=== PATIENT | female | born 1965 | race Caucasian/White ===

== ENCOUNTER 2023-11-02 12:19 | Emergency (ER) | payer OTHER ==
[~2023-11-02] VITALS: Ht 175.3 cm; Wt 91.6 kg
[~2023-11-02 12:19] MED LIST: AMIT25 PO; Adipex-P37.5 M1 PO; Ativan1 MG PO; CELE400; CEPH500 PO; CYCL10; FLUT1DIS2 INH; GABA100 PO; HYDACE5; HYDACE7.5 PO; Loratadine10 MG PO; NAPR500EC; ONDA4ODT SL; PRED20; PROACE100; PROACE100 PO; SUMA5NI; Tamiflu75 MG PO; Ventolin/Prove6.7 GM; [UNRECOGNIZED DRUG - OTHER]
[2023-11-02 12:53] VITALS: BP 172/106
[2023-11-02] MEDS ORDERED: CEPH500 PO (13:19)
[2023-11-02] MEDS ORDERED: HYDR1TAB94 PO (15:13)
== END 2023-11-02 13:43 | disposition home or self-care (01) ==
LOC: ER 12:19
DX: S62.631B Displaced fracture of distal phalanx of left index finger, initial encounter for open fracture (principal); W31.2XXA Contact with powered woodworking and forming machines, initial encounter; J45.909 Unspecified asthma, uncomplicated; Z23 Encounter for immunization; Z88.5 Allergy status to narcotic agent; Z88.8 Allergy status to other drugs, medicaments and biological substances; Z79.899 Other long term (current) drug therapy
CPT/HCPCS: 73140; 90471; 90714; 90715; 99283-25; A9270

== ENCOUNTER 2025-07-19 07:14 | Observation (INO) | payer SELFPAY ==
[~2025-07-19] VITALS: Ht 175.3 cm; Wt 91.0 kg
[2025-07-19] VITALS (16 sets, daily range): BP systolic 100–143; BP diastolic 56–92
[~2025-07-19 07:14] MED LIST changes: +HYDR1TAB94 PO
[2025-07-19] MEDS ORDERED: Ketorolac Tromethamine 30mg Vial IV ONE (07:30)
[2025-07-19] MEDS ORDERED: FentaNYL Citrate 50 MCG/ML 2 ML Injection IV ONE (07:30)
[2025-07-19] MEDS ORDERED: Ondansetron HCl 2 MG / ML 2ML Vial IV ONE ×3 (07:40→13:25)
[2025-07-19] MEDS ORDERED: HYDROmorphone HCl/Pf 1MG SYR IV ONE ×2 (09:00→09:30)
[2025-07-19] MEDS ORDERED: HYDROmorphone HCl/Pf 1MG SYR IV PRN (10:25)
--- NOTE | 2025-07-19 13:04 | NUR ---
PT TO ROOM [address] FROM ED[address] PT NPO. DR HOFFMAN IN WITH PT TO OBTAIN CONSENT/ETC... PT TO OR IN THE NEXT FIFTEEN MINUTES PER CHARGE.
[2025-07-19] MEDS ORDERED: CeFAZolin Sodium 2,000 MG in NS 100 ML IV SCH (13:35)
[2025-07-19] MEDS ORDERED: FentaNYL Citrate 50 MCG/ML 2 ML Injection ONE (14:05)
[2025-07-19] MEDS ORDERED: Midazolam HCl 1MG / ML 2ML Vial ONE (14:05)
[2025-07-19] MEDS ORDERED: Bupivacaine 0.5% HCl 5 MG/ML 30MLVIAL ONE (14:09)
[2025-07-19 14:14] LABS: BASOPHILS ABSOLUTE AUTO 0.03 K/mm3 (0.00-0.23); BASOPHILS PERCENT AUTO 1 % (0-2); EOSINOPHILS ABSOLUTE AUTO 0.00 K/mm3 (0.00-0.68); EOSINOPHILS PERCENT AUTO 0 % (0-6); Hematocrit 35.5 % (33.0-51.0); Hemoglobin 12.1 g/dL (11.5-16.0); IMMATURE GRAN ABSOLUTE AUTO 0.02 K/mm3 (0.00-0.10); IMMATURE GRAN PERCENT AUTO 0 % (0-1); LYMPHOCYTES ABSOLUTE AUTO 1.20 K/mm3 (0.84-5.20); LYMPHOCYTES PERCENT AUTO 18 % (21-46); MONOCYTES ABSOLUTE AUTO 0.39 K/mm3 (0.16-1.47); MONOCYTES PERCENT AUTO 6 % (4-13); Mean Corpuscular HGB Conc 34.1 g/dL (31.5-36.5); Mean Corpuscular Volume 88 fL (80-100); NEUTROPHILS ABSOLUTE AUTO 4.91 K/mm3 (1.96-9.15); NEUTROPHILS PERCENT AUTO 75 % (41-73); NRBC ABSOLUTE 0.00 K/mm3 (0.00-0.02); NRBC Auto 0.0 /100 WBC (0.0-0.2); Platelet Count 191 K/mm3 (150-400); RDW Coefficient Variation 12.5 % (11.7-14.2); RDW Standard Deviation 40.9 fL (35.1-46.3)
--- NOTE | 2025-07-19 14:26 | NUR ---
TO [facility]. History, Chart, Medications and Allergies reviewed before start of procedure. Lungs clear T/O to Auscultation. Patient confirms NPO status and agrees with scheduled surgery. Pre-Op teaching done. Pt verbalizes understanding. 1414: TIME OUT COMPLETED AT BEDSIDE FOR NERVE BLOCK. PT PLACED ON HARDBOARD PRESS OPERATOR, SPO2, O2. 1418: BLOCK STARTED. PT DESATS DURING PROCEDURE. PLACED ON NRB. NASAL TRUMPET PLACED PER ANES WITH GOOD EFFECT. PT MAINTAINING O2. 1421: BLOCK COMPLETED. 1428: 2ND BLOCK STARTED. PT MARIBEL WELL WITH 10L O2 WITH NRB. AWAKES WITH VERBAL STIMULATION. 1429: BLOCK COMPLETED. MASK REMOVED. PLACED ON NC. WILL REMOVE NASAL TRUMPET ONCE FULLY AWAKE.
[2025-07-19 14:32] LABS: Anion Gap 7.0 mmol/L (3-11); Blood Urea Nitrogen 16.0 mg/dL (8-24); CO2, Blood 25.0 mmol/L (21-32); Calcium, Blood 8.5 mg/dL (8.5-10.1); Chloride, Blood 113.0 mmol/L (98-108); Creatinine, Blood 0.78 mg/dL (0.40-1.00); Glucose, Blood 92.0 mg/dL (70-99); Potassium, Blood 4.3 mmol/L (3.5-5.5); Sodium, Blood 141.0 mmol/L (136-145)
[2025-07-19] MEDS ORDERED: Ondansetron HCl 2 MG / ML 2ML Vial ONE (15:21)
[2025-07-19] MEDS ORDERED: Metoclopramide HCl 5MG / ML 2ML Vial ONE (15:21)
--- NOTE | 2025-07-19 15:34 | NUR ---
07/19/25 1534 Makenzie Dye NOTED: STITCHES TO PT RIGHT 3RD TOE, SURGEON AWARE
[2025-07-19] MEDS ORDERED: Sugammadex Sodium 200 MG/2ML SDV (100 MG/ML) ONE (16:33)
--- NOTE | 2025-07-19 17:31 | NUR ---
PT TO ROOM 218 AFTER PACU. POST OP VS STARTED AND STABLE. ORTHOGLASS SPLINT IN PLACE LEFT LEG. LEG IS STILL BLOCKED. CAP REFILL WNL. GAUZE POST OP SHOE TO RIGHT AFTER SECOND TOE REDUCTION. WILL CONTINUE TO MONITOR.
[2025-07-20 00:19] VITALS: BP 105/54
[2025-07-20 03:10] VITALS: BP 105/54
[2025-07-20] MEDS ORDERED: Ondansetron HCl 2 MG / ML 2ML Vial IV PRN (04:15)
[2025-07-20] MEDS ORDERED: FentaNYL Citrate 50 MCG/ML 2 ML Injection IV PRN (04:15)
[2025-07-20 05:18] LABS: BASOPHILS ABSOLUTE AUTO 0.03 K/mm3 (0.00-0.23); BASOPHILS PERCENT AUTO 0 % (0-2); EOSINOPHILS ABSOLUTE AUTO 0.00 K/mm3 (0.00-0.68); EOSINOPHILS PERCENT AUTO 0 % (0-6); Hematocrit 33.3 % (33.0-51.0); Hemoglobin 11.2 g/dL (11.5-16.0); IMMATURE GRAN ABSOLUTE AUTO 0.02 K/mm3 (0.00-0.10); IMMATURE GRAN PERCENT AUTO 0 % (0-1); LYMPHOCYTES ABSOLUTE AUTO 1.38 K/mm3 (0.84-5.20); LYMPHOCYTES PERCENT AUTO 18 % (21-46); MONOCYTES ABSOLUTE AUTO 0.64 K/mm3 (0.16-1.47); MONOCYTES PERCENT AUTO 8 % (4-13); Mean Corpuscular HGB Conc 33.6 g/dL (31.5-36.5); Mean Corpuscular Volume 89 fL (80-100); NEUTROPHILS ABSOLUTE AUTO 5.83 K/mm3 (1.96-9.15); NEUTROPHILS PERCENT AUTO 74 % (41-73); NRBC ABSOLUTE 0.00 K/mm3 (0.00-0.02); NRBC Auto 0.0 /100 WBC (0.0-0.2); Platelet Count 178 K/mm3 (150-400); RDW Coefficient Variation 12.5 % (11.7-14.2); RDW Standard Deviation 40.8 fL (35.1-46.3)
--- NOTE | 2025-07-20 05:28 | NUR ---
SHIFT SUMMARY FESTUS WAS SLEEPY BUT ROUSABLE ON ASSESSMENT AND FULLY ORIENTED. LOCAL BLOCK STILL IN EFFECT AT START OF SHIFT, BUT WORE OFF IN EARLY AM. PT PAIN BECOMING INCREASINGLY DIFFICULT TO MANAGE, REACHING OUT TO HOSPITALIST FOR PAIN MANAGEMENT OPTIONS. SENSATION AND ABILLITY TO WIGGLE TOES HAS RETURNED, CAP REFIL <3 SEC. PT DENIES NAUSEA, SOB, AND CHEST PAIN. PT ON BEDREST PENDING WB STATUS UPDATE. PURWIC IN PLACE WITH GOOD OUTPUT. NO ACUTE EVENTS TONIGHT. NO NOTED DRAINAGE TO EXTERNAL CAST.
[2025-07-20 05:47] LABS: Anion Gap 7.0 mmol/L (3-11); Blood Urea Nitrogen 13.0 mg/dL (8-24); CO2, Blood 24.0 mmol/L (21-32); Calcium, Blood 8.1 mg/dL (8.5-10.1); Chloride, Blood 112.0 mmol/L (98-108); Creatinine, Blood 0.85 mg/dL (0.40-1.00); Glucose, Blood 95.0 mg/dL (70-99); Potassium, Blood 4.3 mmol/L (3.5-5.5); Sodium, Blood 139.0 mmol/L (136-145)
[2025-07-20 07:00] VITALS: BP 123/71
[2025-07-20] MEDS ORDERED: OXAYDO5 M1 PO (07:10)
--- NOTE | 2025-07-20 10:23 | NUR ---
PT REPORTS THAT HER FAMILY IS OUT OF TOWN, AND SHE HAS THREE FLIGHTS OF STAIRS TO CLIMB AT HOME.
[2025-07-20 13:56] VITALS: BP 126/74
--- NOTE | 2025-07-20 17:43 | NUR ---
SHIFT SUMMARY. POOR PAIN CONTROL TODAY. OXYCODONE INCREASED TO TWO TABS BY . SO FAR, PT HAS NOT NEEDED BREAKTHROUGH MEDICATION . ABLE TO WORK PARTIALLY WITH PT/OT TODAY. WILL CONTINUE TO MONITOR.
[2025-07-20 19:41] VITALS: BP 145/68
--- NOTE | 2025-07-21 04:04 | NUR ---
SHIFT SUMMARY FESTUS WAS ALERT AND FULLY ORIENTED ON ASSESSMENT. PAIN WAS OUT OF PROPORTION AT START OF SHIFT, BUT HAS GRADUALLY BECOME MORE MANAGEABLE T/O SHIFT. CIRCULAION/ SENSATION TO BLE'S INTACT, PT ABLE TO WIGGLE TOES. NO DRAINAGE NOTED. CONT BIOX PROVIDED D/T OPOIDS. DENIES SOB, NAUSEA, OR CHEST PAIN. NO ACUTE EVENTS OR OTHER NOTED CHANGES TO PT.
[2025-07-21 05:13] LABS: BASOPHILS ABSOLUTE AUTO 0.02 K/mm3 (0.00-0.23); BASOPHILS PERCENT AUTO 0 % (0-2); EOSINOPHILS ABSOLUTE AUTO 0.00 K/mm3 (0.00-0.68); EOSINOPHILS PERCENT AUTO 0 % (0-6); Hematocrit 35.8 % (33.0-51.0); Hemoglobin 12.1 g/dL (11.5-16.0); IMMATURE GRAN ABSOLUTE AUTO 0.03 K/mm3 (0.00-0.10); IMMATURE GRAN PERCENT AUTO 0 % (0-1); LYMPHOCYTES ABSOLUTE AUTO 1.31 K/mm3 (0.84-5.20); LYMPHOCYTES PERCENT AUTO 16 % (21-46); MONOCYTES ABSOLUTE AUTO 0.86 K/mm3 (0.16-1.47); MONOCYTES PERCENT AUTO 10 % (4-13); Mean Corpuscular HGB Conc 33.8 g/dL (31.5-36.5); Mean Corpuscular Volume 89 fL (80-100); NEUTROPHILS ABSOLUTE AUTO 6.11 K/mm3 (1.96-9.15); NEUTROPHILS PERCENT AUTO 73 % (41-73); NRBC ABSOLUTE 0.00 K/mm3 (0.00-0.02); NRBC Auto 0.0 /100 WBC (0.0-0.2); Platelet Count 182 K/mm3 (150-400); RDW Coefficient Variation 12.3 % (11.7-14.2); RDW Standard Deviation 40.0 fL (35.1-46.3)
[2025-07-21 05:18] VITALS: BP 137/71
[2025-07-21 05:50] LABS: Anion Gap 6.0 mmol/L (3-11); Blood Urea Nitrogen 13.0 mg/dL (8-24); CO2, Blood 27.0 mmol/L (21-32); Calcium, Blood 8.3 mg/dL (8.5-10.1); Chloride, Blood 107.0 mmol/L (98-108); Creatinine, Blood 0.84 mg/dL (0.40-1.00); Glucose, Blood 108.0 mg/dL (70-99); Potassium, Blood 4.1 mmol/L (3.5-5.5); Sodium, Blood 136.0 mmol/L (136-145)
[2025-07-21 07:07] VITALS: BP 140/77
--- NOTE | 2025-07-21 09:00 | NUR ---
pt laying in bed, states she has pain, rates 5/10, medicated per emar, a/ox4, pleasant and cooperative with care, follow commands well, lungs are clear t/o, resp even and unlabored, no cough noted, on r/a, hrr, piv to rac, site is clear and patent, btx4, last bm day before yesterday, voids via purwick at this time, skin has bulky dressing to left le, and foot, maew, nonweight berring at this time, curly, call light in reach.
[2025-07-21 14:55] VITALS: BP 118/74
--- NOTE | 2025-07-21 18:19 | NUR ---
pt doing ok, no acute changes this shift, worked with therapy today, pain being managed by roxicodone, call light in reach.
[2025-07-21 19:23] VITALS: BP 108/63
[2025-07-21] MEDS ORDERED: Polyethylene Glycol 3350 17 gm PO SCH (21:00)
[2025-07-22] MEDS ORDERED: Heparin Sodium,Porcine 5,000 UNIT/0.5 ML SDV SC SCH
[2025-07-22 03:40] VITALS: BP 119/66
--- NOTE | 2025-07-22 05:15 | NUR ---
NOC SUMMARY- PT PAIN MANAGED WELL. PT HAS BEEN RESTING IN NO DISTRESS. PT VOIDING VIA PUREWICK DEVICE. PT TOLERATING PO. PT GIVEN BOWEL CARE MEDS ORDERED. CALL LIGHT IN REACH.
[2025-07-22 05:51] LABS: BASOPHILS ABSOLUTE AUTO 0.03 K/mm3 (0.00-0.23); BASOPHILS PERCENT AUTO 1 % (0-2); EOSINOPHILS ABSOLUTE AUTO 0.00 K/mm3 (0.00-0.68); EOSINOPHILS PERCENT AUTO 0 % (0-6); Hematocrit 32.8 % (33.0-51.0); Hemoglobin 11.4 g/dL (11.5-16.0); IMMATURE GRAN ABSOLUTE AUTO 0.01 K/mm3 (0.00-0.10); IMMATURE GRAN PERCENT AUTO 0 % (0-1); LYMPHOCYTES ABSOLUTE AUTO 1.53 K/mm3 (0.84-5.20); LYMPHOCYTES PERCENT AUTO 24 % (21-46); MONOCYTES ABSOLUTE AUTO 0.57 K/mm3 (0.16-1.47); MONOCYTES PERCENT AUTO 9 % (4-13); Mean Corpuscular HGB Conc 34.8 g/dL (31.5-36.5); Mean Corpuscular Volume 87 fL (80-100); NEUTROPHILS ABSOLUTE AUTO 4.36 K/mm3 (1.96-9.15); NEUTROPHILS PERCENT AUTO 67 % (41-73); NRBC ABSOLUTE 0.00 K/mm3 (0.00-0.02); NRBC Auto 0.0 /100 WBC (0.0-0.2); Platelet Count 197 K/mm3 (150-400); RDW Coefficient Variation 12.2 % (11.7-14.2); RDW Standard Deviation 39.0 fL (35.1-46.3)
[2025-07-22 06:17] LABS: Anion Gap 8.0 mmol/L (3-11); Blood Urea Nitrogen 12.0 mg/dL (8-24); CO2, Blood 26.0 mmol/L (21-32); Calcium, Blood 8.6 mg/dL (8.5-10.1); Chloride, Blood 108.0 mmol/L (98-108); Creatinine, Blood 0.8 mg/dL (0.40-1.00); Glucose, Blood 96.0 mg/dL (70-99); Potassium, Blood 4.0 mmol/L (3.5-5.5); Sodium, Blood 138.0 mmol/L (136-145)
[2025-07-22 07:19] VITALS: BP 117/69
[2025-07-22 14:52] VITALS: BP 125/68
--- NOTE | 2025-07-22 18:32 | NUR ---
SHIFT SUMMARY PATIENT IS AOX4, POD 3 ORIF L ANKLE. SPLINT TEVIN IN PLACE, C/D/I. RIGHT HEEL TOUCH WBS, SUTURES AND KENZIE IN TOES. BOOT IN PLACE. USES FWW, GB, 1 ASSIST. UP TO CHAIR AND BATHROOM. WORKS WITH PT. MEDICATED FOR PAIN. TOLERATING PO WELL. PLAN FOR SNF PLACEMENT. VSS. CALL LIGHT IN REACH.
[2025-07-22 19:48] VITALS: BP 131/65
--- NOTE | 2025-07-23 05:19 | NUR ---
NOC SUMMARY- PT IS AMBULATORY TO BATHROOM W/ FWW AND GB. PT MAINTAINING WB RESTRICTIONS WELL. PT TEVIN WRAP IS C/D/I. PT HAS BEEN VOIDING IN BATHROOM WITHOUT ISSUE. PT TOLERATING PO INTAKE. NO NEW ISSUES NOTED. CALL LIGHT IN REACH.
[2025-07-23 05:28] VITALS: BP 118/74
[2025-07-23 06:38] LABS: BASOPHILS ABSOLUTE AUTO 0.06 K/mm3 (0.00-0.23); BASOPHILS PERCENT AUTO 1 % (0-2); EOSINOPHILS ABSOLUTE AUTO 0.16 K/mm3 (0.00-0.68); EOSINOPHILS PERCENT AUTO 3 % (0-6); Hematocrit 33.3 % (33.0-51.0); Hemoglobin 11.3 g/dL (11.5-16.0); IMMATURE GRAN ABSOLUTE AUTO 0.02 K/mm3 (0.00-0.10); IMMATURE GRAN PERCENT AUTO 0 % (0-1); LYMPHOCYTES ABSOLUTE AUTO 1.75 K/mm3 (0.84-5.20); LYMPHOCYTES PERCENT AUTO 31 % (21-46); MONOCYTES ABSOLUTE AUTO 0.54 K/mm3 (0.16-1.47); MONOCYTES PERCENT AUTO 10 % (4-13); Mean Corpuscular HGB Conc 33.9 g/dL (31.5-36.5); Mean Corpuscular Volume 89 fL (80-100); NEUTROPHILS ABSOLUTE AUTO 3.14 K/mm3 (1.96-9.15); NEUTROPHILS PERCENT AUTO 55 % (41-73); NRBC ABSOLUTE 0.00 K/mm3 (0.00-0.02); NRBC Auto 0.0 /100 WBC (0.0-0.2); Platelet Count 178 K/mm3 (150-400); RDW Coefficient Variation 12.2 % (11.7-14.2); RDW Standard Deviation 40.1 fL (35.1-46.3)
[2025-07-23 06:57] LABS: Anion Gap 4.0 mmol/L (3-11); Blood Urea Nitrogen 14.0 mg/dL (8-24); CO2, Blood 30.0 mmol/L (21-32); Calcium, Blood 8.9 mg/dL (8.5-10.1); Chloride, Blood 108.0 mmol/L (98-108); Creatinine, Blood 0.92 mg/dL (0.40-1.00); Glucose, Blood 98.0 mg/dL (70-99); Potassium, Blood 4.4 mmol/L (3.5-5.5); Sodium, Blood 138.0 mmol/L (136-145)
[2025-07-23 07:41] VITALS: BP 118/71
[2025-07-23 14:42] VITALS: BP 135/71
[2025-07-23 19:50] VITALS: BP 118/65
[2025-07-23 23:31] VITALS: BP 118/64
--- NOTE | 2025-07-24 05:15 | NUR ---
SHIFT SUMMARY POD 5 L ANKLE ORIF & R 2ND TOE FX REPAIR. NO ACUTE CHANGES OVERNIGHT. VSS. TOLERATING ORALS. DENIES NAUSEA. VOIDING. AMBULATES USING FWW c GB & 1 PERSON ASSIST STAND/PIVOT TO BSC. PT COMPLIANT c WEIGHT BEARING RESTRICTIONS. PT REPORTS PAIN TOLERABLE, MEDICATED PER EMAR. TEVIN WRAP TO LLE C/D/I, ORTHO SHOE IN PLACE TO RLE. ANTICIPATED D/C TO SNF. CALL LIGHT IN REACH, BED IN LOWEST POSITION, WILL REPORT TO DAY RN.
[2025-07-24 05:57] VITALS: BP 161/831
[2025-07-24 08:03] VITALS: BP 126/68
[2025-07-24 15:36] VITALS: BP 123/89
--- NOTE | 2025-07-24 18:16 | NUR ---
SHIFT SUMMARY PT TAKING TYLENOL ONLY FOR PAIN. MINIMAL ASSIST USING WALKER TO BATHROOM. WILL CONTINUE TO MONITOR.
[2025-07-24 18:36] VITALS: BP 140/75
[2025-07-24 19:21] VITALS: BP 124/70
[2025-07-25 03:46] VITALS: BP 107/67
--- NOTE | 2025-07-25 06:21 | NUR ---
SHIFT SUMMARY POD 6 L ANKLE ORIF & R 2ND TOE FX REPAIR. NO ACUTE CHANGES OVERNIGHT. VSS. TOLERATING ORALS. DENIES NAUSEA. VOIDING. AMBULATES USING FWW c GB & 1 PERSON ASSIST. PT COMPLIANT c WEIGHT BEARING RESTRICTIONS. PT REPORTS PAIN TOLERABLE, MEDICATED PER EMAR. TEVIN WRAP TO LLE C/D/I, ORTHO SHOE IN PLACE TO RLE. ANTICIPATED D/C TO SNF. CALL LIGHT IN REACH, BED IN LOWEST POSITION, WILL REPORT TO DAY RN.
[2025-07-25 07:13] VITALS: BP 136/88
[2025-07-25 14:16] VITALS: BP 130/77
--- NOTE | 2025-07-25 17:18 | NUR ---
SHIFT SUMMARY PATIENT IS AOX4, POD 5 ORIF. LLE IN SPLINT, TEVIN WRAP, C/D/I. R FOOT IN WALKING SHOE. PINS IN RIGHT TOES. HEEL TOUCH WBS. NBS ON LLE. MEDICATED FOR PAIN PER EMAR. AWAITING SNF PLACEMENT . CARE MANAGEMENT ON CASE. PATIENT IS UP TO CHAIR, BSC, 1 ASSIST GB, FWW. PARTICPATES IN PT. [facility].
[2025-07-25 19:35] VITALS: BP 120/59
[2025-07-26 02:46] VITALS: BP 108/75
--- NOTE | 2025-07-26 04:54 | NUR ---
SHIFT SUMMARY FESTUS WAS ALERT AND FULLY ORIENTED ON ASSESSMENT. PT STABLE, PAIN WELL MANAGED. DENIES SOB, CHEST PAIN, OR NAUSEA. CIRCULATION/ SENSATION TO BLE'S INTACT. DRESSING C/D/I. NO ACUTE EVENTS, NO NOTED CHANGES TO PT CONDITION. WILL CONTINUE TO MONITOR.
[2025-07-26 07:10] VITALS: BP 107/75
[2025-07-26 14:44] VITALS: BP 110/92
--- NOTE | 2025-07-26 16:59 | NUR ---
SUMMARY NO ACUTE CHANGES THIS SHIFT. VSS. AWAITING DC TO [facility]. PT AWARE. AXO4. TOLERATING WB PRECAUTIONS (OF NOTE: PHYSICAL THERAPY SUGGESTING HEEL TOUCH WEIGHT BEARING TO R LEG, NOW SUGGESTING, AFTER REVIEWING XRAYS AGAIN, JUST STANDING AND PIVOTING WITHOUT AMBULATION - PT AWARE OF THIS CHANGE). PT HAS ONLY REQUIRED TYLENOL THIS SHIFT - MEDICATED TO RELIEF, STATES WANTING TO AVOID NARCOTICS IF POSSIBLE. SPLINT TO L LEG, STARTED SHIFT WITH SOME REPORTED TINGLING TO 2 OUTER TOES, LOOSENED TEVIN WRAPS AND REAPPLIED TO PT SATISFACTION, PT DENYING ANY MORE NUMBNESS/TINGLING. FAMILY IN ROOM VISITING TOWARDS END OF SHIFT. PT OTHERWISE RESTING IN BED/CHAIR, TOLERATING MEALS, VOIDING WELL.
[2025-07-26 19:22] VITALS: BP 137/88
[2025-07-26 22:35] LABS: Source, Urine Clean Catch
[2025-07-26 22:39] LABS: Bilirubin, Urine Neg (Neg); Glucose Qualitative, Urine Neg (Neg); Ketones, Urine Neg (Neg); Leukocyte Esterase, Urine Neg (Neg); Protein, Urine Neg (Neg); Specific Gravity, Urine 1.015 (1.003-1.022); Urobilinogen, Urine NORM (Normal)
[2025-07-26 22:45] LABS: Color, Urine Yellow (P-Yellow)
[2025-07-27 02:57] VITALS: BP 142/84
--- NOTE | 2025-07-27 04:06 | NUR ---
SHIFT SUMMARY FESTUS WAS ALERT AND FULLY ORIENTED ON ASSESSMENT. PT DENIES PAIN, NAUSEA, SOB, AND CHEST PAIN. DRESSING/ CAST C/D/I. PT STATES THAT SHE HAS HAD MINOR "DRIBBLING" INCONTENINCE THAT IS NOT NORMAL FOR HER ALONG WITH URINARY URGENCY. HOSPITALIST CONTACTED ORDERS FOR UA RECIEVED. PT EDUCATION ON AMBULATION RESTRICTIONS REINFORCED. NO ACUTE EVENTS THIS SHIFT.
[2025-07-27 07:06] VITALS: BP 118/71
[2025-07-27 14:22] VITALS: BP 126/70
--- NOTE | 2025-07-27 14:25 | NUR ---
ASSUMED CARE OF PT @0700 AXO4. VSS. SPLINT CDI TO L LEG. ORTHO SHOE PRESENT TO R LEG, SUTURES CDI. REACHED OUT TO DR HOFFMAN REGARDING QUESTION OF WB STATUS TO R LEG - BUT PT AND PATIENT ARE LMITING WB STATUS TO STANDING AND PIVOTING HEEL TOUCH PRECAUTIONS VS FULL HEEL TOUCH AMBULATION AT THIS TIME TO R LEG. DR HOFFMAN AGREES WITH JUST TRANSFERS FOR THE TIME BEING. NWB TO L LEG REMAINS. PT VOIDING OFTEN THIS SHIFT. MORE PAINFRUL THIS SHIFT - DISCUSSED WITH PT THAT NARCOTIC PAIN MEDS WERE OK TO TAKE WHEN EXPERIENCING PAIN VS JUST TYLENOL PT WAS NOTED TO PRESENT MORE PAINFUL TODAY - ACCEPTED ADMINISTRATION OF OXYCODONE. TO BETTER EFFECT. PT ACCEPTED AT [facility]. PHYSICVAL THERAPY WORKED WITH HER TODAY AND TARA CONTINUE OUTPATIENT THERAPY. CARE MANAGEMENT RN WORKING ON DC TO SNF NOW.
--- NOTE | 2025-07-27 15:42 | NUR ---
PT DC'D WITH TRANSPORT @1523 DC INSTRUCTIONS PROVIDED TO PATIENT. NO ACUTE CHANGES POST ASSUMPTION NOTE. REPORT GIVEN TO [facility]. VSS. SPLINT CDI. BELONGINGS WITH PT INCLUDING PT'S PHONE, LAPTOP/ELECTRONICS, CORDS, ETC.
== END 2025-07-27 15:23 ==
LOC: ER 07:14 → SURS 07:15 → ERHOLD 10:22 → ER 10:22 → ERHOLD 12:54 → SURS 12:54 → ER 07-21 15:01 → SURS 07-21 15:01 → ERHOLD 07-21 15:01 → SURS 07-21 15:01
PROVIDERS: Nurse Practitioner Acute Care; Orthopaedic Surgery; Student in an Organized Health Care Education/Training Program; ADMIT Internal Medicine
PROC: 0QSH04Z Reposition Left Tibia with Internal Fixation Device, Open Approach (ICD-10-PCS; 2025-07-19)
PROC: 0QSQXZZ Reposition Right Toe Phalanx, External Approach (ICD-10-PCS; 2025-07-19)
PROC: 0QSQXZZ Reposition Right Toe Phalanx, External Approach (ICD-10-PCS; 2025-07-19)
PROC: 0QSKXZZ Reposition Left Fibula, External Approach (ICD-10-PCS; 2025-07-19)
PROC: 0QSHXZZ Reposition Left Tibia, External Approach (ICD-10-PCS; 2025-07-19)
PROC: 0HQMXZZ Repair Right Foot Skin, External Approach (ICD-10-PCS; 2025-07-19)
PROC: 0QSK04Z Reposition Left Fibula with Internal Fixation Device, Open Approach (ICD-10-PCS; principal; 2025-07-19 13:30)
DX: S82.842A Displaced bimalleolar fracture of left lower leg, initial encounter for closed fracture (principal); S92.511A Displaced fracture of proximal phalanx of right lesser toe(s), initial encounter for closed fracture; W10.9XXA Fall (on) (from) unspecified stairs and steps, initial encounter; J45.909 Unspecified asthma, uncomplicated; S91.114A Laceration without foreign body of right lesser toe(s) without damage to nail, initial encounter; G43.909 Migraine, unspecified, not intractable, without status migrainosus; Z66 Do not resuscitate; F41.9 Anxiety disorder, unspecified; F32.A Depression, unspecified; Y92.009 Unspecified place in unspecified non-institutional (private) residence as the place of occurrence of the external cause; Z88.5 Allergy status to narcotic agent; Z88.8 Allergy status to other drugs, medicaments and biological substances; Z79.51 Long term (current) use of inhaled steroids; Z79.891 Long term (current) use of opiate analgesic
CPT/HCPCS: 12001; 27810; 36415; 73502; 73590; 73610; 73630; 80048; 81003; 85025; 94762; 96374-59; 96375; 96375-59; 96376; 97110; 97116; 97161; 97166; 97530; 97530-CQ; 97535; 99285-25; A9270; C1713; C1769; G0378; J0690; J1171; J1644; J2250; J2405; J2704; J2765; J3010; J7120